=== PATIENT | male | born 1950 | race Caucasian/White ===

== ENCOUNTER → 2016-08-15 | Outpatient (CLI) | payer OTHER ==
[2016-08-15 18:58] LABS: INFLUENZA A PCR Neg for Influ A (NEG)
[2016-08-15 20:28] LABS: INFLUENZA B PCR POS for Influ B (NEG)
== END | disposition home or self-care (01) ==
LOC: C.LABPBG 12:03
PROVIDERS: ATTEND Internal Medicine
DX: J06.9 Acute upper respiratory infection, unspecified (principal)

== ENCOUNTER → 2016-09-07 | Outpatient (CLI) | payer OTHER ==
--- NOTE | 2016-09-13 08:41 | CODING QUERY MEDICAL NECESSITY ---
SUPPORTING DIAGNOSIS NEEDED A supporting diagnosis is required for the test/procedure performed on this patient in order for us to be reimbursed by the patient's insurance. Please provide a supporting diagnosis for the following test/procedure listed below next to the test name along with your signature. *If there is no additional diagnosis for this patient that would support the following test/procedure please document that below next to the test/procedure. Test(s)/Procedure(s) that require a supporting diagnosis: * PSA DIAGNOSIS: * DOS: 09/07/16 Provider Signature: Date: Thank you Naomie Fontenot [employer] Information Management Once completed, please kindly fax back to [phone] For questions please call [phone]
== END | disposition home or self-care (01) ==
LOC: C.LABPBG 08:02
PROVIDERS: ATTEND Urology
DX: N43.3 Hydrocele, unspecified (principal); C61 Malignant neoplasm of prostate

== ENCOUNTER → 2017-03-13 | Outpatient (CLI) | payer OTHER ==
[2017-03-13 12:01] LABS: BASO % 0.5 %; BASO ABS # 0.04 K/uL (0-0.2); COMPLETE YES; EOS % 3.6 %; HEMATOCRIT 46.8 % (42-52); IG% 0.7 %; LYMPH % 23.2 %; LYMPH ABS # 1.73 K/uL (1.2-3.4); MEAN CELL VOLUME 90.2 fL (80-100); MEAN CORPUSCULAR HGB CONC 34.4 g/dl (32-36); MEAN PLATELET VOLUME 10.7 fL (7.4-10.4); MONO % 7.9 %; NEUT % 64.1 %; PLATELET COUNT 180 K/uL (130-400); RED BLOOD COUNT 5.19 M/uL (4.7-6.1); WHITE BLOOD COUNT 7.45 K/uL (4.8-10.8)
[2017-03-13 12:25] LABS: ALT/SGPT 28 U/L (12-78); AST/SGOT 18 U/L (15-37); BLOOD UREA NITROGEN 17 mg/dl (7-18); BUN/CREATININE RATIO 14.5 (10-20); CARBON DIOXIDE 27 mmol/L (21-32); CHLORIDE 101 mmol/L (98-107); ESTIMATED AVERAGE GLUCOSE 295 mg/dl; GLUCOSE 323 mg/dl (70-99); HA1C FLAG Normal (Normal); POTASSIUM 4.1 mmol/L (3.5-5.1); SODIUM 132 mmol/L (136-145)
[2017-03-13 12:28] LABS: ALB/GLOB RATIO 1.2 (0.9-2); ALKALINE PHOSPHATASE 91 U/L (45-117); CHOLESTEROL 181 mg/dl (0-200); CHOLESTEROL/HDL RATIO 3.6; HDL CHOLESTEROL 50 mg/dl; LDL CHOLESTEROL CALCULATED 100 mg/dl; TRIGLYCERIDES 156 mg/dl (0-150); VERY LOW DENSITY LIPOPROT CALC 31 mg/dl
[2017-03-13 12:36] LABS: BETA-HYDROXYBUTYRATE 3.14 mg/dL (0.2-2.81)
--- NOTE | 2017-03-24 06:43 | CODING QUERY MEDICAL NECESSITY ---
SUPPORTING DIAGNOSIS NEEDED A supporting diagnosis is required for the test/procedure performed on this patient in order for us to be reimbursed by the patient's insurance. Please provide a supporting diagnosis for the following test/procedure listed below next to the test name along with your signature. *If there is no additional diagnosis for this patient that would support the following test/procedure please document that below next to the test/procedure. Test(s)/Procedure(s) that require a supporting diagnosis: * HEMOGLOBIN A1C DIAGNOSIS: * PSA DIAGNOSIS: Provider Signature: Date: Thank you Pearl Feldman [employer] Information Management Once completed, please kindly fax back to [phone] For questions please call [phone]
== END | disposition home or self-care (01) ==
LOC: C.LABPBG 09:19
PROVIDERS: ATTEND Internal Medicine
DX: E03.9 Hypothyroidism, unspecified (principal); T14.8 Other injury of unspecified body region; X58.XXXA Exposure to other specified factors, initial encounter; E11.9 Type 2 diabetes mellitus without complications; C61 Malignant neoplasm of prostate

== ENCOUNTER → 2017-05-31 | Outpatient (CLI) | payer OTHER | END | disposition home or self-care (01) | LOC: C.LABBC 09:45 | PROVIDERS: ATTEND Physician Assistant | DX: C61 Malignant neoplasm of prostate (principal) ==

== ENCOUNTER → 2017-07-07 | Outpatient (CLI) | payer OTHER ==
[2017-07-07 17:49] LABS: ALBUMIN 3.6 gm/dl (3.4-5.0); ALT/SGPT 27 U/L (12-78); AST/SGOT 17 U/L (15-37); BLOOD UREA NITROGEN 21 mg/dl (7-18); CALCIUM 9.4 mg/dl (8.5-10.1); CARBON DIOXIDE 21 mmol/L (21-32); CREATININE 1.25 mg/dl (0.60-1.40); GLUCOSE 174 mg/dl (70-99); POTASSIUM 4.2 mmol/L (3.5-5.1); SODIUM 137 mmol/L (136-145)
[2017-07-07 17:51] LABS: ALKALINE PHOSPHATASE 81 U/L (45-117); TOTAL PROTEIN 7.4 gm/dl (6.4-8.2)
[2017-07-08 07:40] LABS: HEMOGLOBIN A1C 8.2 % (4.5-5.6)
== END | disposition home or self-care (01) ==
LOC: C.LABPBG 11:37
PROVIDERS: ATTEND Internal Medicine
DX: Z00.00 Encounter for general adult medical examination without abnormal findings (principal); E11.9 Type 2 diabetes mellitus without complications

== ENCOUNTER 2025-02-16 13:29 | Inpatient (IN) ==
--- NOTE | 2025-02-16 14:11 | Emergency Department Note ---
Impression & Plan Facial droop, Stroke-like symptoms, History of CVA (cerebrovascular accident), Hypomagnesemia ED Provider Note NAME: ELLIOT HERNANDEZ AGE: 74 SEX: M : 1950 ARRIVES VIA: Walk-In INFORMANT: [Patient] ED PROVIDER(S): [Jose Alberto Ortiz MD] Patient first seen by me at 1344 CHIEF COMPLAINT: Stroke symptoms HISTORY OF PRESENT ILLNESS: The patient is a 74-year-old male who is currently on aspirin and Plavix. The patient was discharged from [facility] around 3 weeks ago after the diagnosis of CVA. He had presented with left facial numbness. CT imaging did show some moderate to severe stenosis of the right internal carotid artery, MRI showed a left medullary infarct. The patient did return back to the same hospital a few days later because of some issues with temperature sensation with his right arm. A repeat MRI was done that showed no change. He was discharged. Patient has had intermittent left facial numbness and drooping since discharge although, things seemed recently to be quite improved. This morning, around 10 AM, 3 hours and 45 minutes ago, the patient noticed increased numbness in the left face and his face was much more drooped. The patient has had tearing of his left eye intermittently over the last few weeks and he has a hard time closing the left eye. The tearing in the eye today is worse. The patient has not noticed any weakness in his arms or legs. Of note, the patient also complains of some stiffness to his left neck and left face. This has been present since this morning, even before the left facial numbness and drooping worsened. PMHx/PSHx/Social Hx: See Below PHYSICAL EXAM: GENERAL: Patient is in no acute distress. HEENT: No acute trauma, normocephalic atraumatic, mucous membranes moist, no nasal congestion. NECK: No stridor, no adenopathy, no meningismus, trachea is midline. LUNGS: Clear to auscultation bilaterally, no wheeze, no rhonchi, breath sounds equal. HEART: Without murmurs gallops or rubs, regular rate and rhythm. ABDOMEN: Soft, nontender, no peritonitis. EXTREMITIES: No cyanosis, full range of motion of all the joints without pain or difficulty. NEUROLOGIC: Oriented x 3. The patient has an obvious left facial droop. No speech slur. There is tearing of his left eye. He has a loss of the left frontalis wrinkles and often, his left eye does not blink. There is no extremity drift or cerebellar dysfunction. SKIN: No jaundice, no diaphoresis. DIFFERENTIAL DIAGNOSIS: Stroke, Mata's palsy, intracranial bleeding, electrolyte imbalance, Lyme disease, among others. EMERGENCY DEPARTMENT PROCEDURES: MEDICAL DECISION MAKING: There is no leukocytosis or concerning anemia. There is a normal platelet count. No bandemia. No coagulopathy. Sodium is somewhat low but not in need of emergent correction. No renal failure. Magnesium is low at 1.5. No concerning liver enzyme elevation. ECG shows a sinus rhythm, no ischemia. Cardiac enzyme testing x 1 is not consistent with acute cardiac injury. Anaplasmosis and Babesia smears are negative. Lyme disease testing is negative. Brain CT shows no acute bleed or mass effect. CTA of the head and neck was performed, patient does have narrowing of his carotids. No clot seen. On exam, the patient had no focal extremity deficits, no drift. He had a left facial droop that seemed to involve his left frontalis musculature and left eyeblink. The patient was aggressively managed, a stroke alert was called. I did speak with the stroke neurologist from [place]. The patient is not a TNK candidate as, he just was diagnosed with a CVA 3 weeks ago. Admission and repeat stroke workup was felt necessary. Currently, the patient is doing well. His left facial droop is persisting. By my exam, his droop seems very consistent with Mata's palsy rather than acute CVA. The patient is being hospitalized for a complete stroke workup. MRI needs to be performed. I did speak with case management, the on-call hospitalist was consulted. Of note, given the low magnesium value, 2 g of IV magnesium was ordered as replacement. Prior/Outside records/notes reviewed: Discharge summary report from 01/27/2025 describing his presentation, hospital course and plan at discharge. ECG per my interpretation: Indication was stroke. The ECG shows a sinus rhythm with some sinus arrhythmia. The rate is 68. There is an incomplete right bundle branch block. There is no ST elevation, no PVCs. The QTc is 406. Continuous Cardiac Monitoring per my interpretation: An order was placed for continuous cardiac monitoring. The monitor shows a rate of 66 with normal sinus rhythm. Imaging/x-ray results per my interpretation: Chronic Medical/Social conditions affecting care: Advanced age, recent diagnosis of CVA. Care/Management discussed with: [facility] stroke neurology-Dr. Jones. Case management and the on-call hospitalist. Level of care consideration(s): After review of the information above and other included data: --I believe the patient requires escalation of care to admission Critical Care Note: I have personally spent 46 minutes of critical care time in the direct management of this patient. This includes bedside care, interpretation of diagnostic studies, and testing, discussion with consultants, patient, and family members, and other required patient management activities. This 46 minutes is in excess of all separately billable procedures. DISPOSITION: Admission Past Med/Surg History Problem List (Updated 02/16/25 @ 17:40 by Jose Alberto Ortiz MD) Hypomagnesemia (Acute) History of CVA (cerebrovascular accident) (Acute) Stroke-like symptoms (Acute) Facial droop (Acute) Encounter for pre-operative examination Abnormal chest CT Tobacco use disorder ILD (interstitial lung disease) Alveolar emphysema of lung Right upper lobe pulmonary nodule Lumbar facet joint syndrome GERD (gastroesophageal reflux disease) Spinal stenosis of lumbar region with neurogenic claudication Calcification of abdominal aorta Coronary artery calcification seen on CT scan History of cigarette smoking Diabetic polyneuropathy (Chronic) Dyslipidemia (high LDL; low HDL) (Chronic) Diabetic nephropathy associated with type 2 diabetes mellitus (Chronic) History of malignant neoplasm of prostate HTN (hypertension) (Chronic) Hypothyroidism (Chronic) Lumbar spinal stenosis (Chronic) 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 History of COVID-19 hx Apr 2022, no hx hospitalization. Altered taste ever since. 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 "very top of right lung" - reason for upcoming procedure on 02/12/25. per pt report: no known lung problems or breathing problems as of current only the lung nodules, pt reports had breathing tests & were normal. History of stroke (01/26/25) evaluated at [facility] no TNK given per records Seen in ED 01/28/25 after discharge from hospital 01/27/25 with stroke like symptoms but no new lesions noted Residuals: trouble swallowing, right side can't feel hot or cold and smile crooked some but improving every day. Current PT for. Upcoming neurology 02/20/25. Stenosis of right carotid artery Per neck/head CTA 01/28/25= 50% left ICA stenosis, 70% right ICA stenosis, 60% stenosis of left vertebral artery, possible chronic occlusion of distal right vertebral artery Coronary artery calcification seen on CT scan Advanced coronary artery atherosclerosis noted on 02/04/25 chest CTA GERD (gastroesophageal reflux disease) History of vertigo Hyperlipidemia HTN (hypertension) Neuropathy Diabetes Spinal stenosis History of diverticulitis s/p colon resection History of prostate cancer s/p prostatectomy Arthritis Tommy's thyroiditis Surgical History History of colonoscopy S/P colon resection (05/2022) further sigmoid resection, takedown of colostomy Status post Yinka procedure (12/2021) ex-lap, sigmoid resection, yinka pouch, sigmoid colostomy History of esophagogastroduodenoscopy (EGD) (08/2022) w/ dilatation; noted multiple antral erosions History of surgery (12/2022) excision sebaceous cyst post neck History of incisional hernia repair (10/2022) Dr Lalo Christian H/O prostatectomy prostate surgery included hernia repair as well per pt, ? details. Status post hernia repair multiple Status post cholecystectomy Status post appendectomy Family History Mother Colorectal cancer Cardiac disorder Diabetes Hypertension Breast cancer Father Diabetes Hypertension Grandfather (Maternal) Myocardial infarction Denies family history of Ovarian cancer Prostate cancer Social History Smoking Status: Never smoker Tobacco Type: Cigarettes Age Started Using Tobacco: 18; Age Quit Using Tobacco: 74; packs per day: 0.5; Cigarettes Per Day: 1 pack per week; Second Hand Exposure: No; Do You Dip or Chew Tobacco: No; Hx Alcohol Use: Yes (hx couple beers a day prior to stroke 01/26/25, none since.) Alcohol type: beer Alcohol type Comment: 3 beers Alcohol Intake Frequency: 4 or More x per/Week Hx Substance Use: Yes (hx 37 yrs ago smoked marijuana once in awhile) Preferred Language: Chinese Communication Ability: Effective Visual Impairment: No Limitations Hearing Ability: Normal 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 Beliefs That Will Affect Care: Latter-Day L[employer]-Day Beliefs: Adventism marital status: Current Living Situation: Spouse Current Living Situation Comment: and the cat current occupational status: employed 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 Feels Safe at Home: Yes Childhood Exposure to Second-Hand Smoke: No Diet: regular Diet Comment: regular caffeine: Yes (Tea x 3 bottles per day.) during the past year weight has: remained stable Dental Care, Regularly: Yes Physical Activity Frequency: Daily Physical Activity Frequency Comment: working Seatbelt Use: never Sunscreen Use: No Assistive Devices: Denture - Upper, Glasses and Other Allergies Allergies Allergy/AdvReac Type Severity Reaction Status Date / Time No Known Allergies Allergy Verified 02/06/25 08:31 Home Meds Home Medications Medication Instructions Recorded Confirmed aspirin 81 mg tablet,delayed 81 mg PO DAILY 01/29/25 02/16/25 release (Adult Low Dose Aspirin) atorvastatin 20 mg tablet 20 mg PO QPM 01/29/25 02/16/25 clopidogrel 75 mg tablet (Plavix) 75 mg PO QAM 01/29/25 02/16/25 cyanocobalamin (vitamin B-12) 1,000 mcg PO DAILY 01/29/25 02/16/25 1,000 mcg tablet meclizine 25 mg tablet 25 mg PO TID PRN hx vertigo 01/29/25 02/16/25 ondansetron 4 mg disintegrating 4 mg PO Q8H PRN Nausea 01/29/25 02/16/25 tablet amlodipine 5 mg tablet 5 mg PO QPM 02/06/25 02/16/25 levothyroxine 112 mcg tablet 112 mcg PO QAM 02/06/25 02/16/25 pantoprazole 40 mg tablet,delayed 40 mg PO QAM 02/06/25 02/16/25 release (Protonix) Previous Rx's Medication Instructions Recorded blood sugar diagnostic (Contour #100 ea 01/10/23 Next Test Strips) blood-glucose meter (Blood Glucose #1 ea 01/10/23 Monitoring kit) metoprolol succinate 50 mg 50 mg PO QAM #90 tabs 09/16/24 tablet,extended release 24 hr (Toprol XL) glimepiride 2 mg tablet 4 mg (2 x 2 mg) PO QAM #180 tabs 12/02/24 ramipril 10 mg capsule 20 mg (2 x 10 mg) PO QAM #180 caps 12/31/24 metformin 500 mg tablet,extended 500 mg PO BID #180 tabs 01/13/25 release 24 hr Results & Data (ED) Vital Signs Vital Signs - 24 hr 02/16/25 13:30 02/16/25 13:45 02/16/25 14:16 Temperature 36.4 C L Temperature Source Temporal Artery Scan Pulse Rate 70 68 Pulse Rate [Apical] 66 Pulse Rhythm [Apical] Pulse Strength [Apical] Respiratory Rate 18 16 Respiratory Effort / Characteristics Non-Labored Non-Labored Spontaneous Respiratory Depth Normal Normal Respiratory Pattern Regular Regular Blood Pressure 145/70 H Blood Pressure [Right Arm] 153/77 H Blood Pressure Mean 95 Blood Pressure Mean [Right Arm] 102 Blood Pressure Position [Right Arm] Pulse Oximetry 99 98 Oxygen Delivery Method Room Air Room Air Sepsis Recent Fever Within 48 Hours No Sepsis New/Unexplained Change in Mental Status N/A Sepsis Action Taken by Nursing No Action Required 02/16/25 15:05 02/16/25 16:00 Temperature Temperature Source Pulse Rate Pulse Rate [Apical] 65 64 Pulse Rhythm [Apical] Irregular Regular Pulse Strength [Apical] Normal Respiratory Rate 22 14 Respiratory Effort / Characteristics Non-Labored Spontaneous Non-Labored Spontaneous Respiratory Depth Normal Normal Respiratory Pattern Regular Regular Blood Pressure Blood Pressure [Right Arm] 147/81 H 138/68 Blood Pressure Mean Blood Pressure Mean [Right Arm] 103 91 Blood Pressure Position [Right Arm] Semi-fowlers Pulse Oximetry 99 96 Oxygen Delivery Method Room Air Room Air Sepsis Recent Fever Within 48 Hours Sepsis New/Unexplained Change in Mental Status Sepsis Action Taken by Care Home Medications Current Medication List: was personally reviewed by me Laboratory Data Attestation: I reviewed the patient's lab results. 02/16/25 13:50 02/16/25 13:50 Lab Results 02/16/25 Range/Units 13:50 WBC 7.48 (4.8-10.8) K/ul RBC 4.75 (4.70-6.10) M/uL Hgb 15.0 (14.0-18.0) g/dl Hct 42.8 (42.0-52.0) % MCV 90.1 (80.0-100.0) fL MCH 31.6 (25.0-34.0) pg MCHC 35.0 (32.0-36.0) g/dL RDW Std Deviation 42.7 (36.4-46.3) fL RDW Coeff of Lidia 13.0 (11.5-14.5) % Plt Count 178 (130-400) K/uL MPV 10.4 (9.4-12.4) fL Immature Gran % (Auto) 1.2 % Neut % (Auto) 64.7 % Lymph % (Auto) 19.1 % Dade % (Auto) 7.5 % Eos % (Auto) 6.7 % Baso % (Auto) 0.8 % Neut # (Auto) 4.84 (1.40-6.50) K/uL Lymph # (Auto) 1.43 (1.20-3.40) K/uL Dade # (Auto) 0.56 (0.11-0.59) K/uL Eos # (Auto) 0.50 (0.00-0.50) K/uL Baso # (Auto) 0.06 (0.00-0.20) K/uL Immature Gran # (Auto) 0.09 (0.01-0.20) K/uL PT 10.3 (9.0-12.0) Seconds INR 0.9 (0.9-1.1) APTT 28 (21-31) Seconds PTT Ratio 1.0 Sodium 132 L (136-145) mmol/L Potassium 4.5 (3.5-5.1) mmol/L Chloride 99 (98-107) mmol/L Carbon Dioxide 26 (21-32) mmol/L Anion Gap 7 (3-11) BUN 22 (6-23) mg/dl Creatinine 1.26 (0.6-1.4) mg/dl Est Cr Clr Drug Dosing 49.9 ml/min eGFR 59.11 BUN/Creatinine Ratio 17.5 (10-20) Glucose 273 H (70-99(Fasting)) mg/dl Calcium 9.8 (8.6-10.3) mg/dl Magnesium 1.5 L (1.7-2.4) mg/dl Total Bilirubin 0.9 (0.2-1.0) mg/dl AST 20 (13-39) U/L ALT 29 (7-52) U/L Alkaline Phosphatase 118 H (34-104) U/L Troponin I High Sens 7.9 (0-20) pg/ml Total Protein 6.7 (6.0-8.3) gm/dl Albumin 4.0 (3.4-5.0) gm/dl Globulin 2.7 (2.5-4.0) gm/dl Albumin/Globulin Ratio 1.5 (0.9-2) Anaplasma Smear See Comment Babesia Smear See Comment Lyme Disease Screen Negative (Negative) Administered Medications Discontinued Medications Magnesium Sulfate/Dextrose (Magnesium Sulfate / D5w) 1 gm in 100 mls @ 100 mls/hr IV Q1H JOSE ALFREDO Stop: 02/16/25 16:55 Last Infusion: 02/16/25 17:23 Dose: 0 mls/hr Documented By: Admin: 02/16/25 16:36 Dose: 100 mls/hr Documented By: Infusion: 02/16/25 16:36 Dose: Infused Documented By: Admin: 02/16/25 15:08 Dose: 100 mls/hr Documented By: ELMER Ioversol (Optiray 320 125ml) 112 ml IV ONCE ONE Stop: 02/16/25 14:41 Last Admin: 02/16/25 14:40 Dose: 112 ml Documented By: POLINA Imaging Data Radiologist's Impression: Head CT 02/16/25 14:15 Exam: CT head/brain without contrast. Reason for exam: Recent stroke, rule out bleed. Previous studies: None available. FINDINGS: No intracranial mass effect, hemorrhage or edema is seen at this time. There is a mild diffuse atrophy and symmetric deep white matter lucencies suggesting chronic microvascular ischemic changes. Some benign ventricular calcifications are present. No extra-axial blood or fluid collection is seen. No acute or destructive process of the bony calvarium is seen. The visualized mastoids and sinuses remain clear. Extensive atherosclerotic vascular calcifications are present. IMPRESSION: 1. Negative for acute intracranial process. No mass or hemorrhage. 2. Diffuse atrophy and lucency in the deep white matter most suggestive of chronic microvascular ischemic angiopathy. 3. Extensive atherosclerotic vascular calcifications in the carotid systems. Electronically signed by Shay Heredia 02-16-2025 3:55 PM Head CTA 02/16/25 14:18 Exam: CT angiogram head with contrast. Reason for exam: Recent stroke, rule out bleed. Previous studies: Unenhanced head CT 02/16/2025. FINDINGS: Following injection of intravenous contrast material the arterial intracranial structures are visualized. Intact flow seen in the distal internal carotid arteries bilaterally. Extensive hard and soft plaque is seen in the distal intracranial effusions and the carotid siphons bilaterally producing a maximum of approximately 50% stenosis at these levels. Intact seen in the arteries about the three affiliated of Delgado including the anterior and middle cerebral arteries bilaterally. Intact flow is seen in the distal vertebral arteries bilaterally to form the basilar. The left vertebral is dominant in size and scattered atherosclerotic plaque disease is seen in the distal vertebrals bilaterally as well as near the origin of the basilar artery. No evidence of active hemorrhage. Aneurysm is visualized at this time. IMPRESSION: 1. Negative for hemorrhage. 2. Extensive atherosclerotic vascular calcifications with a maximum of approximately 50% stenosis in the distal internal carotid arteries bilaterally. Otherwise no significant stenoses about the three affiliated of [place]gado or Electronically signed by Shay Heredia 02-16-2025 4:00 PM Neck CTA 02/16/25 14:18 Exam: CT angiogram neck with contrast. Reason for exam: Recent stroke, rule out bleed or CVA. Previous studies for comparison: None FINDINGS: Following intravenous contrast there is good opacification of the arterial structures. Aortic arch, normal vessel and is seen with scattered plaquing but no high-grade stenosis or occlusion. The right carotid bifurcation shows extensive hard and soft plaque with a maximum stenosis of 70% of the right internal carotid artery near its origin. 80% stenosis is seen in the proximal right external carotid artery. Mid and distal right internal carotid artery show no high-grade stenosis. The left carotid bifurcation shows a large irregular mixed hard and soft plaque with a maximum 50% stenosis in the proximal left internal carotid artery. Maximum 40% stenosis is seen of the left external carotid artery. Intact flow is seen bilaterally. The left being significantly dominant in size. An mild scattered plaquing but no complete occlusion of the basilar artery. IMPRESSION: 1. Extensive mixed hard and soft plaque at both carotid bifurcations. 2. Maximum 70% stenosis proximal right internal carotid artery. 3. Maximum 50% stenosis proximal left internal carotid artery. 4. Intact vertebral flow bilaterally, with the left being markedly dominant in size to the right. Electronically signed by Shay Heredia 02-16-2025 4:10 PM Discharge Plan Visit Data Chief Complaint: Stroke/CVA Symptoms Stated Complaint: CONCERN OF STROKE, L SIDE OF FACE FEELING WEIRD ED Provider: Jose Alberto Ortiz Discharge Problem: Facial droop, Stroke-like symptoms, History of CVA (cerebrovascular accident), Hypomagnesemia Patient Disposition: Admitted As Inpatient Condition: Fair Forms Stand Alone Forms: [employer] Prescriptions Prescriptions: No Action metoprolol succinate [Toprol XL] 50 mg tablet extended release 24 hr 50 mg PO QAM Qty: 90 3RF glimepiride 2 mg tablet 4 mg PO QAM Qty: 180 3RF ramipril 10 mg capsule 20 mg PO QAM Qty: 180 3RF metformin 500 mg tablet extended release 24 hr 500 mg PO BID Qty: 180 3RF Hold Instructions: Held for IVP dye, resume Wednesday [place]/31 [place] [place] blood-glucose meter [Blood Glucose Monitoring] Kit See Rx Instructions .ROUTE .MEDSUPPLY Qty: 1 0RF Rx Instructions: As directed daily ([facility] [place] Contour Next Test Strips Strip See Rx Instructions .Route Qty: 100 5RF Rx Instructions: once per day aspirin [Adult Low Dose Aspirin] 81 mg tablet,delayed release (DR/EC) 81 mg PO DAILY Patient Comments: 02/16- otc unable to verify clopidogrel [Plavix] 75 mg tablet 75 mg PO QAM atorvastatin 20 mg tablet 20 mg PO QPM Rx Instructions: New current takin 2 10 mg- want 1 20 mg next fill cyanocobalamin (vitamin B-12) 1,000 mcg tablet 1,000 mcg PO DAILY Patient Comments: 02/16- otc unable to verify meclizine 25 mg tablet 25 mg PO TID PRN (Reason: hx vertigo) Patient Comments: New for vertigo PRN ondansetron 4 mg tablet,disintegrating 4 mg PO Q8H PRN (Reason: Nausea) amlodipine 5 mg tablet 5 mg PO QPM Rx Instructions: in evening pantoprazole [Protonix] 40 mg tablet,delayed release (DR/EC) 40 mg PO QAM levothyroxine 112 mcg tablet 112 mcg PO QAM Rx Instructions: TAKE 1 TABLET BY MOUTH DAILY Referrals Referrals: Poppy Huerta DO [Primary Care Provider] -
[2025-02-16 14:34] LABS: Hematocrit (blood only) 42.8 % (42.0-52.0); Hemoglobin 15.0 g/dl (14.0-18.0); Immature Granulocytes # (auto) 0.09 K/uL (0.01-0.20); Immature Granulocytes % (auto) 1.2 %; Mean Corpuscular Hemoglobin 31.6 pg (25.0-34.0); Mean Corpuscular Volume 90.1 fL (80.0-100.0); Platelet Count 178 K/uL (130-400); RDW Standard Deviation 42.7 fL (36.4-46.3); Red Blood Count 4.75 M/uL (4.70-6.10); White Blood Count 7.48 K/ul (4.8-10.8)
[2025-02-16] MEDS: OPTIRAY 320 125ml IV ONE (14:40)
[2025-02-16 14:51] LABS: Alanine Aminotransferase 29.0 U/L (7-52); Albumin Globulin Ratio 1.5 (0.9-2); Alkaline Phosphatase 118.0 U/L (34-104); Anion Gap 7.0 (3-11); Bilirubin,Total 0.9 mg/dl (0.2-1.0); Blood Urea Nitrogen 22.0 mg/dl (6-23); Calcium 9.8 mg/dl (8.6-10.3); Carbon Dioxide 26.0 mmol/L (21-32); Chloride 99.0 mmol/L (98-107); Creatinine Clr Calc Pharmacy 49.9 ml/min; Globulin 2.7 gm/dl (2.5-4.0); Glucose 273.0 mg/dl (70-99(Fasting)); Magnesium 1.5 mg/dl (1.7-2.4); Potassium 4.5 mmol/L (3.5-5.1); Sodium 132.0 mmol/L (136-145); Total Protein 6.7 gm/dl (6.0-8.3)
[2025-02-16 15:05] LABS: INR 0.9 (0.9-1.1); Partial Thromboplastin Time 28 Seconds (21-31); Prothrombin Time 10.3 Seconds (9.0-12.0)
[2025-02-16] MEDS: MAGNESIUM SULFATE / D5W 1 GM/100 ML BAG IV SCH (15:08)
--- NOTE | 2025-02-16 15:36 | History & Physical Report ---
Date of Service February 16, 2025 Assessment & Plan (1) Facial droop: (2) History of CVA (cerebrovascular accident): (3) Tobacco use disorder: (4) ILD (interstitial lung disease): (5) Right upper lobe pulmonary nodule: (6) GERD (gastroesophageal reflux disease): (7) Spinal stenosis of lumbar region with neurogenic claudication: (8) HTN (hypertension): (9) Hypothyroidism: (10) History of prostate cancer: Plan Pleasant 74yo male with recent history of left medullary stroke - hospitalized at [facility] from 01/26 to 01/27 - along with T2DM, tobacco use, HTN, hypothyroidism, lumbar spinal stenosis, h/o prostate cancer, hyperlipidemia, and daily alcohol use until recently. During his stay at [facility] he underwent CTAs head/neck; this showed significant right-sided ICA stenosis. Echo completed on 01/27 showed EF 60%, grade 1 diastolic dysfunction, no PFO, and normal valve function. He was discharged on aspirin and plavix. He returned to the [facility] ER on 01/28 with complaints of ongoing left facial symptoms and temperature disturbance of his right arm. He underwent repeat brain MRI at that time and it was unchanged from the prior brain MRI done just 2 days earlier. #left medullary stroke - December 2024 - with worsening L facial droop - -patient had been recovering well from his December CVA; left facial symptoms were improving day to day -however, starting this am, he noted worsening L facial droop, left eye tearing, and left nare rhinorrhea - this prompted him to come to the ER -no change in his right arm temperature disturbance, and no new symptoms/signs of either arm/leg -differential - stroke recrudescence vs extension of his original left medullary stroke vs stroke in new location vs non-CVA pathology (Mata's Palsy, etc) vs other -current symptoms/signs of the L face and right arm are typical for medullary stroke; thus, this may be recrudescence -although there was some concern for possible Mata's Palsy, I do believe he still has L forehead movements arguing against such -repeat CTAs head/neck today show b/l ICA stenosis, worse on right, but doubt contributing to recent stroke -just had echo in late December - will defer repeat -check a repeat MRI brain w/ and w/o contrast -dysphagia screen as he reports dysphagia since the time of his December CVA -PT, OT, speech therapy evals -cont asa 81mg daily + plavix 75mg daily -cont statin -strongly consider [facility] consult in light of recurrent symptoms in the setting of his recent CVA -lipids were checked in October 2024 - defer on repeat -check a1c in am #hypomagnesemia - -replaced with IV mag -repeat level am #hypothyroidism - -TSH in October 2024 was wnl -cont synthroid #HTN - -hold amlodipine, meto succ, and HELEN to allow permissive HTN in the setting of possible new stroke #T2DM - -hold metformin; hold glimepiride -check a1c am -BSGs ac/hs -novolog SSI #tobacco use disorder - -patient quit about 3 weeks ago following his late December stroke #daily use of etoh - -also stopped etoh intake following the December stroke #RUL lung nodule/mass - -has seen Dr Hager for this earlier in January -plan is for bronch with biopsy in near-future to rule out lung ca #GERD - -cont PPI #COPD/ILD - -recent chest CT with increased reticular findings - this may be due to ILD -o2 sats stable at this time #DVT proph - -pending MRI brain will add SC heparin or lovenox pt's updated throughout the admissions process History of Present Illness Chief Complaint: left facial droop, left eye tearing, left nasal drainage Primary Care Provider: DO Anirudh Murdock 74yo male with recent history of left medullary stroke - hospitalized at [facility] from 01/26 to 01/27 - along with T2DM, tobacco use, HTN, hypothyroidism, lumbar spinal stenosis, h/o prostate cancer, hyperlipidemia, and daily alcohol use until recently. During his stay at [facility] he underwent CTAs head/neck; this showed significant right-sided ICA stenosis. Echo completed on 01/27 showed EF 60%, grade 1 diastolic dysfunction, no PFO, and normal valve function. He was discharged on aspirin and plavix. He returned to the [facility] ER on 01/28 with complaints of ongoing left facial symptoms and temperature disturbance of his right arm. He underwent repeat brain MRI at that time and it was unchanged from the prior brain MRI done just 2 days earlier. He reports that since late December his left facial symptoms have gradually been improving. His right arm temperature disturbance remains, however (his right arm feels cold persistently). However, about 10am this morning, he noted worsening facial droop, excessive tearing from the left eye, and the left nostril was draining. No new motor or sensory symptoms of the right arm or right leg. He had a posterior neck headache today, on the left side - but no frontal headache. During my admission assessment the headache had resolved. Since the stroke in late December he has had dysphagia but has not required modif ication of his diet texture or fluids. Per the ER attending physician telestroke was contacted at [place] but lytic therapy was not recommended; usual stroke work-up was advised. Of note - during his stroke work-up in December at [facility] he was noted to have a RUL lung mass. He has seen Dr Kobi Hager with [facility] earlier this month for such and bronchoscopy for biopsy was advised due to concern for lung ca. Allergies Allergy/AdvReac Type Severity Reaction Status Date / Time No Known Allergies Allergy Verified 02/06/25 08:31 Home Medications Medication Instructions Recorded Confirmed Type blood sugar diagnostic (Contour #100 ea 01/10/23 01/31/25 Rx Next Test Strips) blood-glucose meter (Blood Glucose #1 ea 01/10/23 01/31/25 Rx Monitoring kit) metoprolol succinate 50 mg 50 mg PO QAM #90 tabs 09/16/24 02/16/25 Rx tablet,extended release 24 hr (Toprol XL) glimepiride 2 mg tablet 4 mg (2 x 2 mg) PO QAM #180 tabs 12/02/24 02/16/25 Rx ramipril 10 mg capsule 20 mg (2 x 10 mg) PO QAM #180 caps 12/31/24 02/16/25 Rx metformin 500 mg tablet,extended 500 mg PO BID #180 tabs 01/13/25 02/16/25 Rx release 24 hr aspirin 81 mg tablet,delayed 81 mg PO DAILY 01/29/25 02/16/25 History release (Adult Low Dose Aspirin) atorvastatin 20 mg tablet 20 mg PO QPM 01/29/25 02/16/25 History clopidogrel 75 mg tablet (Plavix) 75 mg PO QAM 01/29/25 02/16/25 History cyanocobalamin (vitamin B-12) 1,000 mcg PO DAILY 01/29/25 02/16/25 History 1,000 mcg tablet meclizine 25 mg tablet 25 mg PO TID PRN hx vertigo 01/29/25 02/16/25 History ondansetron 4 mg disintegrating 4 mg PO Q8H PRN Nausea 01/29/25 02/16/25 History tablet amlodipine 5 mg tablet 5 mg PO QPM 02/06/25 02/16/25 History levothyroxine 112 mcg tablet 112 mcg PO QAM 02/06/25 02/16/25 History pantoprazole 40 mg tablet,delayed 40 mg PO QAM 02/06/25 02/16/25 History release (Protonix) Past Med/Surg History Problem List (Updated 02/16/25 @ 20:57 by Fabián Coy MD) Acute cerebrovascular accident (CVA) of medulla oblongata Hypomagnesemia (Acute) History of CVA (cerebrovascular accident) (Acute) 12/2024 - left medullary CVA (hospitalized [facility]) Stroke-like symptoms (Acute) Facial droop (Acute) Encounter for pre-operative examination Abnormal chest CT Tobacco use disorder ILD (interstitial lung disease) Alveolar emphysema of lung Right upper lobe pulmonary nodule Lumbar facet joint syndrome GERD (gastroesophageal reflux disease) Spinal stenosis of lumbar region with neurogenic claudication Calcification of abdominal aorta Coronary artery calcification seen on CT scan History of cigarette smoking Diabetic polyneuropathy (Chronic) Dyslipidemia (high LDL; low HDL) (Chronic) Diabetic nephropathy associated with type 2 diabetes mellitus (Chronic) History of malignant neoplasm of prostate HTN (hypertension) (Chronic) Hypothyroidism (Chronic) Lumbar spinal stenosis (Chronic) 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 History of COVID-19 hx Apr 2022, no hx hospitalization. Altered taste ever since. 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 "very top of right lung" - reason for upcoming procedure on 02/12/25. per pt report: no known lung problems or breathing problems as of current only the lung nodules, pt reports had breathing tests & were normal. History of stroke (01/26/25) evaluated at [facility] no TNK given per records Seen in ED 01/28/25 after discharge from hospital 01/27/25 with stroke like symptoms but no new lesions noted Residuals: trouble swallowing, right side can't feel hot or cold and smile crooked some but improving every day. Current PT for. Upcoming neurology 02/20/25. Stenosis of right carotid artery Per neck/head CTA 01/28/25= 50% left ICA stenosis, 70% right ICA stenosis, 60% stenosis of left vertebral artery, possible chronic occlusion of distal right vertebral artery Coronary artery calcification seen on CT scan Advanced coronary artery atherosclerosis noted on 02/04/25 chest CTA GERD (gastroesophageal reflux disease) History of vertigo Hyperlipidemia HTN (hypertension) Neuropathy Diabetes Spinal stenosis History of diverticulitis s/p colon resection History of prostate cancer s/p prostatectomy Arthritis Tommy's thyroiditis Surgical History (Updated 02/16/25 @ 20:53 by Fabián Coy MD) History of colonoscopy S/P colon resection (05/2022) further sigmoid resection, takedown of colostomy Status post Yinka procedure (12/2021) ex-lap, sigmoid resection, yinka pouch, sigmoid colostomy; 2nd to diverticultiis History of esophagogastroduodenoscopy (EGD) (08/2022) w/ dilatation; noted multiple antral erosions History of surgery (12/2022) excision sebaceous cyst post neck History of incisional hernia repair (10/2022) Dr Lalo Christian H/O prostatectomy prostate surgery included hernia repair as well per pt, ? details. Status post hernia repair multiple Status post cholecystectomy Status post appendectomy Family History (Updated 02/16/25 @ 20:54 by Fabián Coy MD) Mother Colorectal cancer Cardiac disorder Diabetes Hypertension Breast cancer Father Diabetes Hypertension Aortic aneurysm Grandfather (Maternal) Myocardial infarction Denies family history of Ovarian cancer Prostate cancer Social History (Updated 02/16/25 @ 20:54 by Fabián Coy MD) Smoking Status: Former smoker Tobacco Type: Cigarettes Age Started Using Tobacco: 18; Age Quit Using Tobacco: 74; packs per day: 0.5; Smoking End Date: December 2024; Second Hand Exposure: No; Do You Dip or Chew Tobacco: No; Hx Alcohol Use: Yes (hx couple beers a day prior to stroke 01/26/25, none since.) Alcohol type: beer Alcohol type Comment: 3 beers Alcohol Intake Frequency: 4 or More x per/Week Hx Substance Use: Yes (hx 37 yrs ago smoked marijuana once in awhile) Preferred Language: Armenian Communication Ability: Effective Visual Impairment: No Limitations Hearing Ability: Normal Visual C Developer Required: No Beliefs That Will Affect Care: Moravian Moravian Beliefs: Restorationism marital status: Current Living Situation: Spouse Current Living Situation Comment: and the cat current occupational status: employed 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 Feels Safe at Home: Yes Childhood Exposure to Second-Hand Smoke: No Diet: regular Diet Comment: regular caffeine: Yes (Tea x 3 bottles per day.) during the past year weight has: remained stable Dental Care, Regularly: Yes Physical Activity Frequency: Daily Physical Activity Frequency Comment: working Seatbelt Use: never Sunscreen Use: No Assistive Devices: Denture - Upper, Glasses and Other Review of Systems Review of Systems: gen - no fevers or chills; normal appetite; physically active, still working part-time eyes - excessive tearing of left eye, no purulence; no diplopia HENT - left nare with rhinorrhea today; some dysphagia since dx of CVA in late December; excess cerumen in ears CV - no chest pain pulm - no dyspnea or cough today GI - no N/V; no abd pain; no diarrhea; no blood in stool - no dysuria musculo - chronic low back pain but no psoriatic arthritis skin - chronic psoriatic patches endo - BSGs controlled at home neuro - no frontal headache but some headache posteriorly on left; temperature sensation in right arm has been altered since his December CVA; left facial symptoms as above Physical Exam Physical Exam: gen - NAD, pleasant, awake, alert eyes - slight ptosis of left upper eyelid; PERRL; no nystagmus; EOMI HENT - TMs obscured by cerumen b/l; mouth - tongue midline, no lesions; left face lower 2/3 facial droop; still can wrinkle the left forehead neck - no JVD, no lymph nodes, no goiter heart - RRR, s1 s2, no murmur lungs - CTA b/l, no rales abd - soft NT ND BS+ ext - b/l foot pulses 2+, no edema skin - psoriatic patches/plaques on legs b/l neuro - strength 5/5 x 4 exts; DTRs 2+ b/l upper & lower exts; finger/nose/finger maneuver w/o ataxia b/l; CN 3-12 intact except left lower 2/3 facial droop and mild ptosis of left upper eyelid; sensation is intact to light touch on all 4 limbs, but he reports temperature dysfunction of the entire right arm psych - a/o x 3 Results & Data Results & Data Vital Signs (Past 12 Hours) Vital Signs Temp Pulse Pulse Resp BP BP Pulse Ox 02/16/25 15:05 65 22 147/81 H 99 02/16/25 14:16 66 16 153/77 H 98 02/16/25 13:45 68 02/16/25 13:30 36.4 C L 70 18 145/70 H 99 O2 Del Method 02/16/25 15:05 Room Air 02/16/25 14:16 Room Air 02/16/25 13:45 02/16/25 13:30 Room Air Laboratory Results Laboratory Results - last 24 hr 02/16/25 02/16/25 02/16/25 13:50 14:20 20:09 WBC 7.48 RBC 4.75 Hgb 15.0 Hct 42.8 MCV 90.1 MCH 31.6 MCHC 35.0 RDW Std Deviation 42.7 RDW Coeff of Lidia 13.0 Plt Count 178 MPV 10.4 Immature Gran % (Auto) 1.2 Neut % (Auto) 64.7 Lymph % (Auto) 19.1 Avery % (Auto) 7.5 Eos % (Auto) 6.7 Baso % (Auto) 0.8 Neut # (Auto) 4.84 Lymph # (Auto) 1.43 Avery # (Auto) 0.56 Eos # (Auto) 0.50 Baso # (Auto) 0.06 Immature Gran # (Auto) 0.09 PT 10.3 INR 0.9 APTT 28 PTT Ratio 1.0 Sodium 132 L Potassium 4.5 Chloride 99 Carbon Dioxide 26 Anion Gap 7 BUN 22 Creatinine 1.26 Est Cr Clr Drug Dosing 49.9 eGFR 59.11 BUN/Creatinine Ratio 17.5 Glucose 273 H POC Glucose 110 H Calcium 9.8 Magnesium 1.5 L Total Bilirubin 0.9 AST 20 ALT 29 Alkaline Phosphatase 118 H Troponin I High Sens 7.9 Total Protein 6.7 Albumin 4.0 Globulin 2.7 Albumin/Globulin Ratio 1.5 Anaplasma Smear See Comment A. phagocytophilum DNA Pending Babesia Smear See Comment Babesia microti DNA PCR Pending Lyme Disease Screen Negative Diagnostic Findings Head CT 02/16/25 14:15 Exam: CT head/brain without contrast. Reason for exam: Recent stroke, rule out bleed. Previous studies: None available. FINDINGS: No intracranial mass effect, hemorrhage or edema is seen at this time. There is a mild diffuse atrophy and symmetric deep white matter lucencies suggesting chronic microvascular ischemic changes. Some benign ventricular calcifications are present. No extra-axial blood or fluid collection is seen. No acute or destructive process of the bony calvarium is seen. The visualized mastoids and sinuses remain clear. Extensive atherosclerotic vascular calcifications are present. IMPRESSION: 1. Negative for acute intracranial process. No mass or hemorrhage. 2. Diffuse atrophy and lucency in the deep white matter most suggestive of chronic microvascular ischemic angiopathy. 3. Extensive atherosclerotic vascular calcifications in the carotid systems. Electronically signed by Shay Heredia 02-16-2025 3:55 PM Head CTA 02/16/25 14:18 Exam: CT angiogram head with contrast. Reason for exam: Recent stroke, rule out bleed. Previous studies: Unenhanced head CT 02/16/2025. FINDINGS: Following injection of intravenous contrast material the arterial intracranial structures are visualized. Intact flow seen in the distal internal carotid arteries bilaterally. Extensive hard and soft plaque is seen in the distal intracranial effusions and the carotid siphons bilaterally producing a maximum of approximately 50% stenosis at these levels. Intact seen in the arteries about the [place] including the anterior and middle cerebral arteries bilaterally. Intact flow is seen in the distal vertebral arteries bilaterally to form the basilar. The left vertebral is dominant in size and scattered atherosclerotic plaque disease is seen in the distal vertebrals bilaterally as well as near the origin of the basilar artery. No evidence of active hemorrhage. Aneurysm is visualized at this time. IMPRESSION: 1. Negative for hemorrhage. 2. Extensive atherosclerotic vascular calcifications with a maximum of approximately 50% stenosis in the distal internal carotid arteries bilaterally. Otherwise no significant stenoses about the [place] or Electronically signed by Shay Heredia 02-16-2025 4:00 PM Neck CTA 02/16/25 14:18 Exam: CT angiogram neck with contrast. Reason for exam: Recent stroke, rule out bleed or CVA. Previous studies for comparison: None FINDINGS: Following intravenous contrast there is good opacification of the arterial structures. Aortic arch, normal vessel and is seen with scattered plaquing but no high-grade stenosis or occlusion. The right carotid bifurcation shows extensive hard and soft plaque with a maximum stenosis of 70% of the right internal carotid artery near its origin. 80% stenosis is seen in the proximal right external carotid artery. Mid and distal right internal carotid artery show no high-grade stenosis. The left carotid bifurcation shows a large irregular mixed hard and soft plaque with a maximum 50% stenosis in the proximal left internal carotid artery. Maximum 40% stenosis is seen of the left external carotid artery. Intact flow is seen bilaterally. The left being significantly dominant in size. An mild scattered plaquing but no complete occlusion of the basilar artery. IMPRESSION: 1. Extensive mixed hard and soft plaque at both carotid bifurcations. 2. Maximum 70% stenosis proximal right internal carotid artery. 3. Maximum 50% stenosis proximal left internal carotid artery. 4. Intact vertebral flow bilaterally, with the left being markedly dominant in size to the right. Electronically signed by Shay Heredia 02-16-2025 4:10 PM Code Status & VTE Plan Code Status full code PG Care Time/CCT Total # of Minutes Spent Total Time Spent with Patient: Total time spent is greater than 50% in coordination of care (as documented) at patient's floor/unit and/or counseling patient: Coding Level of Care Code 81459 INT INP/OBS CARE 3/75MIN Diagnoses Facial droop R29.810 History of CVA (cerebrovascular accident) Z86.73 Tobacco use disorder F17.200 ILD (interstitial lung disease) J84.9 Right upper lobe pulmonary nodule R91.1 GERD (gastroesophageal reflux disease) K21.9 Spinal stenosis of lumbar region with neurogenic claudication M48.062 Essential hypertension I10 Hypertension type: essential hypertension Hypothyroidism E03.9 History of prostate cancer Z85.46 (8) HTN (hypertension) Hypertension type: essential hypertension Qualified Code(s): I10 - Essential (primary) hypertension
--- NOTE | 2025-02-16 15:56 | CT Scan Report ---
Exam: CT head/brain without contrast. Reason for exam: Recent stroke, rule out bleed. Previous studies: None available. FINDINGS: No intracranial mass effect, hemorrhage or edema is seen at this time. There is a mild diffuse atrophy and symmetric deep white matter lucencies suggesting chronic microvascular ischemic changes. Some benign ventricular calcifications are present. No extra-axial blood or fluid collection is seen. No acute or destructive process of the bony calvarium is seen. The visualized mastoids and sinuses remain clear. Extensive atherosclerotic vascular calcifications are present. IMPRESSION: 1. Negative for acute intracranial process. No mass or hemorrhage. 2. Diffuse atrophy and lucency in the deep white matter most suggestive of chronic microvascular ischemic angiopathy. 3. Extensive atherosclerotic vascular calcifications in the carotid systems. Electronically signed by Shay Heredia 02-16-2025 3:55 PM
--- NOTE | 2025-02-16 16:01 | CT Scan Report ---
Exam: CT angiogram head with contrast. Reason for exam: Recent stroke, rule out bleed. Previous studies: Unenhanced head CT 02/16/2025. FINDINGS: Following injection of intravenous contrast material the arterial intracranial structures are visualized. Intact flow seen in the distal internal carotid arteries bilaterally. Extensive hard and soft plaque is seen in the distal intracranial effusions and the carotid siphons bilaterally producing a maximum of approximately 50% stenosis at these levels. Intact seen in the arteries about the [place] including the anterior and middle cerebral arteries bilaterally. Intact flow is seen in the distal vertebral arteries bilaterally to form the basilar. The left vertebral is dominant in size and scattered atherosclerotic plaque disease is seen in the distal vertebrals bilaterally as well as near the origin of the basilar artery. No evidence of active hemorrhage. Aneurysm is visualized at this time. IMPRESSION: 1. Negative for hemorrhage. 2. Extensive atherosclerotic vascular calcifications with a maximum of approximately 50% stenosis in the distal internal carotid arteries bilaterally. Otherwise no significant stenoses about the [place] or Electronically signed by Shay Heredia 02-16-2025 4:00 PM
--- NOTE | 2025-02-16 16:10 | CT Scan Report ---
Exam: CT angiogram neck with contrast. Reason for exam: Recent stroke, rule out bleed or CVA. Previous studies for comparison: None FINDINGS: Following intravenous contrast there is good opacification of the arterial structures. Aortic arch, normal vessel and is seen with scattered plaquing but no high-grade stenosis or occlusion. The right carotid bifurcation shows extensive hard and soft plaque with a maximum stenosis of 70% of the right internal carotid artery near its origin. 80% stenosis is seen in the proximal right external carotid artery. Mid and distal right internal carotid artery show no high-grade stenosis. The left carotid bifurcation shows a large irregular mixed hard and soft plaque with a maximum 50% stenosis in the proximal left internal carotid artery. Maximum 40% stenosis is seen of the left external carotid artery. Intact flow is seen bilaterally. The left being significantly dominant in size. An mild scattered plaquing but no complete occlusion of the basilar artery. IMPRESSION: 1. Extensive mixed hard and soft plaque at both carotid bifurcations. 2. Maximum 70% stenosis proximal right internal carotid artery. 3. Maximum 50% stenosis proximal left internal carotid artery. 4. Intact vertebral flow bilaterally, with the left being markedly dominant in size to the right. Electronically signed by Shay Heredia 02-16-2025 4:10 PM
[2025-02-16] MEDS: GADOBUTROL 65ML VIAL IV ONE (17:37)
[2025-02-16] MEDS ORDERED: PHARMACIST DISCHARGE MED REC CONSULT PRN (18:58)
[2025-02-16] MEDS ORDERED: MECLIZINE HCL 25 MG TAB PO PRN (18:58)
[2025-02-16] MEDS ORDERED: ONDANSETRON INJ 2 MG/ML 2 ML VIAL IV PRN (18:58)
[2025-02-16] MEDS ORDERED: ACETAMINOPHEN 325 MG TAB PO PRN (18:58)
--- NOTE | 2025-02-16 19:04 | Magnetic Resonance Report ---
HISTORY: Increasing left face numbness and left facial droop. History of left medullary infarct 3 weeks ago at [facility]. TECHNIQUE: MRI of the brain with and without contrast. COMPARISON: Head CT dated 02/16/2025. FINDINGS: The cerebellar tonsils do not extend below the foramen magnum. The sella is not expanded. Minimal restricted diffusion in the left aspect of the medulla. There is associated T2 hyperintensity at this location. No other areas of restricted diffusion.Mild volume loss and chronic microvascular ischemic changes. No areas of susceptibility artifact to suggest acute infarct. Mild enhancement within the left aspect of the medulla on series 9 image 7. No other areas of abnormal intraparenchymal enhancement are identified.The area of enhancement in the medulla measures 0.8 x 0.4 cm on series 10 image 60. Small remote lacunar type infarcts involving the right thalamus and the left palomino radiata. Ventricular caliber is appropriate for the degree of volume loss. Fourth ventricle is midline. The basal cisterns are patent. The major intracranial flow voids are maintained. The globes and orbits are unremarkable. Paranasal sinuses and mastoid air cells are well aerated. IMPRESSION: * Signal abnormality within the left aspect of the medulla measuring 0.8 x 0.4 cm. Subtle restricted diffusion with associated T2 hyperintensity and enhancement. This could represent subacute infarct with associated enhancement or a small enhancing lesion. Short interval follow-up brain MRI with contrast is recommended in 1 to 2 months to evaluate for stability. * Mild volume loss and chronic microvascular ischemic changes. Small areas of remote lacunar infarct as detailed above. Electronically signed by Brett Blank 02-16-2025 7:03 PM
[2025-02-16] MEDS: ATORVASTATIN 20 MG TAB PO SCH (20:11)
[2025-02-16] MEDS: INSULIN ASPART PER UNIT CHARGE SC SCH (20:38)
[2025-02-16] MEDS: ASPIRIN 81 MG ECTAB PO SCH (22:03)
[2025-02-16] MEDS: ARTIFICIAL TEARS OP OINT 3.5 GM TUBE OPL SCH (22:03)
[2025-02-17] MEDS: LEVOTHYROXINE SODIUM 112 MCG TABLET PO SCH (06:26)
[2025-02-17 07:16] LABS: Anion Gap 6.0 (3-11); Blood Urea Nitrogen 16.0 mg/dl (6-23); Calcium 9.3 mg/dl (8.6-10.3); Carbon Dioxide 28.0 mmol/L (21-32); Chloride 103.0 mmol/L (98-107); Creatinine Clr Calc Pharmacy 55.6 ml/min; Glucose 138.0 mg/dl (70-99(Fasting)); Magnesium 1.8 mg/dl (1.7-2.4); Potassium 4.6 mmol/L (3.5-5.1); Sodium 137.0 mmol/L (136-145)
[2025-02-17] MEDS: CYANOCOBALAMIN (B-12) 500 MCG TABLET PO SCH (07:53)
[2025-02-17] MEDS: CLOPIDOGREL BISULFATE 75 MG TAB PO SCH (07:53)
[2025-02-17 08:12] LABS: Hemoglobin A1C 7.5 % (4.5-5.6)
[2025-02-17] MEDS: METOPROLOL SUCC 50MG EXT REL TAB PO SCH (08:16)
--- NOTE | 2025-02-17 09:13 | Neurology Consultation ---
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 left face appears improved per pt. pt wanting to go home today. mri brain noted subacute change that is same small left medial medullary ischemic stroke. no weakness or other symptoms. chart reviewed. Admission HPI:The patient is a 74-year-old male who is currently on aspirin and Plavix. The patient was discharged from [facility] around 3 weeks ago after the diagnosis of CVA. He had presented with left facial numbness. CT imaging did show some moderate to severe stenosis of the right internal carotid artery, MRI showed a left medullary infarct. The patient did return back to the same hospital a few days later because of some issues with temperature sensation with his right arm. A repeat MRI was done that showed no change. He was discharged. Patient has had intermittent left facial numbness and drooping since discharge although, things seemed recently to be quite improved. This morning, around 10 AM, 3 hours and 45 minutes ago, the patient noticed increased numbness in the left face and his face was much more drooped. The patient has had tearing of his left eye intermittently over the last few w eeks and he has a hard time closing the left eye. The tearing in the eye today is worse. The patient has not noticed any weakness in his arms or legs. Of note, the patient also complains of some stiffness to his left neck and left face. This has been present since this morning, even before the left facial numbness and drooping worsened. Allergies Allergy/AdvReac Type Severity Reaction Status Date / Time No Known Allergies Allergy Verified 02/06/25 08:31 Home Medications Medication Instructions Recorded Confirmed Type blood sugar diagnostic (Contour #100 ea 01/10/23 01/31/25 Rx Next Test Strips) blood-glucose meter (Blood Glucose #1 ea 01/10/23 01/31/25 Rx Monitoring kit) metoprolol succinate 50 mg 50 mg PO QAM #90 tabs 09/16/24 02/16/25 Rx tablet,extended release 24 hr (Toprol XL) glimepiride 2 mg tablet 4 mg (2 x 2 mg) PO QAM #180 tabs 12/02/24 02/16/25 Rx ramipril 10 mg capsule 20 mg (2 x 10 mg) PO QAM #180 caps 12/31/24 02/16/25 Rx metformin 500 mg tablet,extended 500 mg PO BID #180 tabs 01/13/25 02/16/25 Rx release 24 hr aspirin 81 mg tablet,delayed 81 mg PO DAILY 01/29/25 02/16/25 History release (Adult Low Dose Aspirin) atorvastatin 20 mg tablet 20 mg PO QPM 01/29/25 02/16/25 History clopidogrel 75 mg tablet (Plavix) 75 mg PO QAM 01/29/25 02/16/25 History cyanocobalamin (vitamin B-12) 1,000 mcg PO DAILY 01/29/25 02/16/25 History 1,000 mcg tablet meclizine 25 mg tablet 25 mg PO TID PRN hx vertigo 01/29/25 02/16/25 History ondansetron 4 mg disintegrating 4 mg PO Q8H PRN Nausea 01/29/25 02/16/25 History tablet amlodipine 5 mg tablet 5 mg PO QPM 02/06/25 02/16/25 History levothyroxine 112 mcg tablet 112 mcg PO QAM 02/06/25 02/16/25 History pantoprazole 40 mg tablet,delayed 40 mg PO QAM 02/06/25 02/16/25 History release (Protonix) Patient History Medical History (Updated 02/16/25 @ 20:57 by Fabián Coy MD) History of anesthesia reaction remote hx as child had ether for hernia repair, severe n/v. History of COVID-19 hx Apr 2022, no hx hospitalization. Altered taste ever since. 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 "very top of right lung" - reason for upcoming procedure on 02/12/25. per pt report: no known lung problems or breathing problems as of current only the lung nodules, pt reports had breathing tests & were normal. History of stroke (01/26/25) evaluated at [facility] no TNK given per records Seen in ED 01/28/25 after discharge from hospital 01/27/25 with stroke like symptoms but no new lesions noted Residuals: trouble swallowing, right side can't feel hot or cold and smile crooked some but improving every day. Current PT for. Upcoming neurology 02/20/25. Stenosis of right carotid artery Per neck/head CTA 01/28/25= 50% left ICA stenosis, 70% right ICA stenosis, 60% stenosis of left vertebral artery, possible chronic occlusion of distal right vertebral artery Coronary artery calcification seen on CT scan Advanced coronary artery atherosclerosis noted on 02/04/25 chest CTA GERD (gastroesophageal reflux disease) History of vertigo Hyperlipidemia HTN (hypertension) Neuropathy Diabetes Spinal stenosis History of diverticulitis s/p colon resection History of prostate cancer s/p prostatectomy Arthritis Tommy's thyroiditis Surgical History (Updated 02/16/25 @ 20:53 by Fabián Coy MD) History of colonoscopy S/P colon resection (05/2022) further sigmoid resection, takedown of colostomy Status post Yinka procedure (12/2021) ex-lap, sigmoid resection, yinka pouch, sigmoid colostomy; 2nd to diverticultiis History of esophagogastroduodenoscopy (EGD) (08/2022) w/ dilatation; noted multiple antral erosions History of surgery (12/2022) excision sebaceous cyst post neck History of incisional hernia repair (10/2022) Dr Lalo Christian H/O prostatectomy prostate surgery included hernia repair as well per pt, ? details. Status post hernia repair multiple Status post cholecystectomy Status post appendectomy Family History (Updated 02/16/25 @ 20:54 by Fabián Coy MD) Mother Colorectal cancer Cardiac disorder Diabetes Hypertension Breast cancer Father Diabetes Hypertension Aortic aneurysm Grandfather (Maternal) Myocardial infarction Denies family history of Ovarian cancer Prostate cancer Social History (Updated 02/16/25 @ 20:54 by Fabián Coy MD) Smoking Status: Former smoker Tobacco Type: Cigarettes Age Started Using Tobacco: 18; Age Quit Using Tobacco: 74; packs per day: 0.5; Smoking End Date: December 2024; Second Hand Exposure: No; Do You Dip or Chew Tobacco: No; Tobacco Cessation Education Requested by Patient: No Hx Alcohol Use: Yes (hx couple beers a day prior to stroke 01/26/25, none since.) Alcohol type: beer Alcohol type Comment: 3 beers Alcohol Intake Frequency: 4 or More x per/Week Hx Substance Use: Yes (hx 37 yrs ago smoked marijuana once in awhile) Preferred Language: Cymro Communication Ability: Effective Visual Impairment: No Limitations Hearing Ability: Normal Physical Optics Teacher Required: No Beliefs That Will Affect Care: Yarsanism Yarsanism Beliefs: Adventism marital status: Current Living Situation: Spouse Current Living Situation Comment: and the cat current occupational status: employed 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 Other Information That Helps Us Care for You: No Feels Safe at Home: Yes Safety Concerns: Feels Safe At This Time Childhood Exposure to Second-Hand Smoke: No Diet: regular Diet Comment: regular caffeine: Yes (Tea x 3 bottles per day.) during the past year weight has: remained stable Dental Care, Regularly: Yes Physical Activity Frequency: Daily Physical Activity Frequency Comment: working Seatbelt Use: never Sunscreen Use: No Assistive Devices: Denture - Upper, Glasses and Other Review of Systems Review of Systems: All systems reviewed & are unremarkable except as noted in Subjective Constitutional: as per Subjective / HPI Eyes: as per Subjective / HPI Ear, Nose, Mouth, Throat: as per Subjective / HPI Respiratory: as per Subjective / HPI Cardiovascular: as per Subjective / HPI Gastrointestinal: as per Subjective / HPI Musculoskeletal: as per Subjective / HPI Integumentary: as per Subjective / HPI Neurologic: as per Subjective / HPI Psychiatric: as per Subjective / HPI Endocrine: as per Subjective / HPI Hematologic / Lymphatic: as per Subjective / HPI Allergy / Immunological: as per Subjective / HPI Exam (Neuro) Physical Exam: HEENT: normocephalic Neuro: Mental: AOx4, fluent speech, normal comprehension, no apraxia, no L/R confusion, no neglect CN: PERRL, Full EOM, left face droop including mild weakness forehead. midline T/U/P, 5/5 SCM/traps. Motor: No abnormal movements, normal tone and bulk, 5/5 t/o bilaterally Sens: very subtle rt arm numbness. Coord: intact DTR: 1+ sym b/l Gait: intact grossly Impression: 74 yo male with about 3 weeks ago had left medullary ischemic stroke and presenting with ?left face weakness that is worse and rt arm numbness. 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 Pt's posterior vertebral artery is open and with good flow. Left medullary lesion should not cause his face weakness as there is no facial nerve involvement and not part of the Dejerine's syndrome. his b/l ICA stenosis is chronic in nature and not likely the cause for this stroke as his stroke is posterior circulation. Pt clinically doing well. Recommendations: antiplatelet therapy: continue for 90 days for this pt. * DAPT (dual antiplatelet therapy): start for pts with ABCD2 score 4 or highe r. Initial loading dose with ASA 325mg and Plavix 300mg (if pt has not been started), then ASA 81mg daily and Plavix 75mg daily. Continue DAPT for 21 days if found small vessel disease only or continue for 90 days if found to have intracranial large artery atherosclerosis. After that, can continue single antiplatelet therapy (either ASA or Plavix). - start tx for Mata's palsy (prednisone rosemarie). Permissive Hypertension not needed as his lesion is subacute in nature. Long-term SBP goal less than 130. Long-term HgA1c goal less than 7. long-term LDL goal less than 70. Telemetry monitoring. Consider half-way cardiac monitoring, i.e. MCOT (mobile cardiac outpatient telemetry) or ICM (insertable manager cardiac, e.g. LINQ), if never had half-way cardiac monitoring done previously. And if found to have atrial flutter or fibrillation, should consider anticoagulation therapy if no contraindication. I do not have much to add from neurology stand point at this point. he also brandon lewis has appt in neurology clinic this week. will sign off. call again if new question. Chart reviewed I have spent more than 50% educating patient about potential diagnosis and tom rological evaluation and coordinating care with patient's treatment team. Total time spent (including chart review and coordination of care): 60 min (this includes chart review). Results & Data Vital Signs (Past 12 Hours) Vital Signs Temp Pulse Pulse Pulse Resp BP Pulse Ox 02/17/25 07:28 36.7 C 65 16 171/78 H 97 02/17/25 05:44 66 02/17/25 03:49 36.5 C 81 20 161/80 H 97 02/17/25 00:27 36.6 C 71 20 152/71 H 98 02/16/25 21:44 71 O2 Del Method 02/17/25 07:28 Room Air 02/17/25 05:44 02/17/25 03:49 Room Air 02/17/25 00:27 Room Air 02/16/25 21:44 PG Care Time/CCT Total # of Minutes Spent Total Time Spent with Patient: Total time spent is greater than 50% in coordination of care (as documented) at patient's floor/unit and/or counseling patient: Coding Level of Care Code 54767 IN/OBS CONSULT LVL 4,60M Diagnoses 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
[2025-02-17 12:15] VITALS: TEMP 97.5
[2025-02-17 16:14] VITALS: BP 172/76; RESP 20; O2SAT 68
[2025-02-17] MEDS ORDERED: STROKE PATIENT DISCHARGE STA (16:26)
[2025-02-17 16:38] VITALS: PULSE 81
--- NOTE | 2025-02-17 16:44 | Discharge Summary ---
Discharge Summary Date of Service February 17, 2025 Principal Dx & Hospital Course #1 = Principal Diagnosis (1) Facial droop: (2) History of CVA (cerebrovascular accident): (3) Tobacco use disorder: (4) ILD (interstitial lung disease): (5) Right upper lobe pulmonary nodule: (6) GERD (gastroesophageal reflux disease): (7) Spinal stenosis of lumbar region with neurogenic claudication: (8) HTN (hypertension): (9) Hypothyroidism: (10) History of prostate cancer: Plan Pleasant 74yo male with recent history of left medullary stroke - hospitalized at [facility] from 01/26 to 01/27 - along with T2DM, tobacco use, HTN, hypothyroidism, lumbar spinal stenosis, h/o prostate cancer, hyperlipidemia, and daily alcohol use until recently. During his stay at [facility] he underwent CTAs head/neck; this showed significant right-sided ICA stenosis. Echo completed on 01/27 showed EF 60%, grade 1 diastolic dysfunction, no PFO, and normal valve function. He was discharged on aspirin and plavix. He returned to the [facility] ER on 01/28 with complaints of ongoing left facial symptoms and temperature disturbance of his right arm. He underwent repeat brain MRI at that time and it was unchanged from the prior brain MRI done just 2 days earlier. #left medullary stroke - December 2024 - with worsening L facial droop - -patient had been recovering well from his December CVA; left facial symptoms were improving day to day -however, starting this am, he noted worsening L facial droop, left eye tearing, and left nare rhinorrhea - this prompted him to come to the ER -no change in his right arm temperature disturbance, and no new symptoms/signs of either arm/leg -differential - stroke recrudescence vs extension of his original left medullary stroke vs stroke in new location vs non-CVA pathology (Mata's Palsy, etc) vs other -current symptoms/signs of the L face and right arm are typical for medullary stroke; thus, this may be recrudescence -although there was some concern for possible Mata's Palsy, I do believe he still has L forehead movements arguing against such -repeat CTAs head/neck today show b/l ICA stenosis, worse on right, but doubt contributing to recent stroke -just had echo in late December - will defer repeat -check a repeat MRI brain w/ and w/o contrast -dysphagia screen as he reports dysphagia since the time of his December CVA -PT, OT, speech therapy evals -cont asa 81mg daily + plavix 75mg daily -cont statin -strongly consider [facility] Neurology consult in light of recurrent symptoms in the setting of his recent CVA -lipids were checked in October 2024 - defer on repeat -check a1c in am #hypomagnesemia - -replaced with IV mag -repeat level am #hypothyroidism - -TSH in October 2024 was wnl -cont synthroid #HTN - -hold amlodipine, meto succ, and HELEN to allow permissive HTN in the setting of possible new stroke #T2DM - -hold metformin; hold glimepiride -check a1c am -BSGs ac/hs -novolog SSI #tobacco use disorder - -patient quit about 3 weeks ago following his late December stroke #daily use of etoh - -also stopped etoh intake following the December stroke #RUL lung nodule/mass - -has seen Dr Hager for this earlier in January -plan is for bronch with biopsy in near-future to rule out lung ca #GERD - -cont PPI #COPD/ILD - -recent chest CT with increased reticular findings - this may be due to ILD -o2 sats stable at this time #DVT proph - -pending MRI brain will add SC heparin or lovenox pt's updated throughout the admissions process Admission HPI Per Admitting Provider Pleasant 74yo male with recent history of left medullary stroke - hospitalized at [facility] from 01/26 to 01/27 - along with T2DM, tobacco use, HTN, hypothyroidism, lumbar spinal stenosis, h/o prostate cancer, hyperlipidemia, and daily alcohol use until recently. During his stay at [facility] he underwent CTAs head/neck; this showed significant right-sided ICA stenosis. Echo completed on 01/27 showed EF 60%, grade 1 diastolic dysfunction, no PFO, and normal valve function. He was discharged on aspirin and plavix. He returned to the [facility] ER on 01/28 with complaints of ongoing left facial symptoms and temperature disturbance of his right arm. He underwent repeat brain MRI at that time and it was unchanged from the prior brain MRI done just 2 days earlier. He reports that since late December his left facial symptoms have gradually been improving. His right arm temperature disturbance remains, however (his right arm feels cold persistently). However, about 10am this morning, he noted worsening facial droop, excessive tearing from the left eye, and the left nostril was draining. No new motor or sensory symptoms of the right arm or right leg. He had a posterior neck headache today, on the left side - but no frontal headache. During my admission assessment the headache had resolved. Since the stroke in late December he has had dysphagia but has not required modification of his diet texture or fluids. Per the ER attending physician telestroke was contacted at [place] but lytic therapy was not recommended; usual stroke work-up was advised. Of note - during his stroke work-up in December at [facility] he was noted to have a RUL lung mass. He has seen Dr Kobi Hager with [facility] earlier this month for such and bronchoscopy for biopsy was advised due to concern for lung ca. Discharge Exam gen - NAD, pleasant, awake, alert eyes - slight ptosis of left upper eyelid; PERRL; no nystagmus; EOMI HENT - TMs obscured by cerumen b/l; mouth - tongue midline, no lesions; left face lower 2/3 facial droop; still can wrinkle the left forehead neck - no JVD, no lymph nodes, no goiter heart - RRR, s1 s2, no murmur lungs - CTA b/l, no rales abd - soft NT ND BS+ ext - b/l foot pulses 2+, no edema skin - psoriatic patches/plaques on legs b/l neuro - strength 5/5 x 4 exts; DTRs 2+ b/l upper & lower exts; finger/nose/finger maneuver w/o ataxia b/l; CN 3-12 intact except left lower 2/3 facial droop and mild ptosis of left upper eyelid; sensation is intact to light touch on all 4 limbs, but he reports temperature dysfunction of the entire right arm psych - a/o x 3 Discharge Plan Discharge Items Patient Disposition: Home - Self-Care Reason For Visit: LEFT FACIAL WEAKNESS Discharge Diagnosis: 1. left facial weakness, excessive left eye tearing, excessive drainage from left nostril, right arm temperature/sensation abnormality - due to left-sided medullary stroke -MRI brain unchanged from MRI brain done in late December; no new areas of stroke 2. 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 old lacunar strokes seen incidentally on MRI brain (old, silent strokes) 4. high blood pressure 5. diabetes 6. mildly low magnesium - improved 7. prior tobacco use 8. right lung nodule 9. high cholesterol Activity: As commented below Activity Comment: no strenuous activities for the next 7-10 days Exercise/Sports: Wait until after follow-up appointment Driving/Machine Use: Would not drive until seen by neurology later this week Non-emergency contact: Primary Care Provider and Neurologist Call non-emergency contact if: you have any medication questions and your symptoms worsen Follow-up/Referrals: Poppy Huerta DO [Primary Care Provider] - 02/25/25 9:20 am (1-2 weeks) Rema Self PA-C [Physician [employer] Furnace Tender] - 02/20/25 10:00 am (neurology clinic ) Diet: Carb Consistent or DM2 and Heart Healthy Ambulatory Orders: Basic Metabolic Panel (Routine) Timeframe: [id number] Location: Determined by Patient Ordered By: Fabián Ames Attending Provider Instructions: Mr Iyer, You were hospitalized due to recurrent stroke symptoms. Your left face felt more droopy, you had tearing from the left eye, your left nostril was very runny, etc. Fortunately MRI brain does not show any new stroke. We saw the stroke in the left medulla that was found in late December in [place]. By hospital day #2 your symptoms were improved. CT scans of the major blood vessels of the head & neck showed the following - -70% stenosis of the right internal carotid artery -50% stenosis of the left internal carotid artery The carotid artery disease was NOT the cause of your stroke, however. This will simply need to be followed with annual scans. You were seen by neurology. 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 The other possibility is that the original stroke was the cause of all of your symptoms. Either way your medicines will not change except for a higher dose of lipitor (atorvastatin). Recommendations - 1. continue your baby aspirin 81mg every day along with clopidogrel (plavix) 75mg every day as previous -take the aspirin with clopidogrel together for 90 days -after 90 days stop the aspirin and just take clopidogrel moving forward 2. we are increasing your atorvastatin cholesterol medicine from 20mg to 40mg/day; new prescription sent in for you 3. take magnesium supplement (magnesium oxide) 400mg once daily 4. HOLD your metformin tonight and tomorrow morning 5. have a blood draw tomorrow morning at the [place] office; you don't have to fast for this; once I have the results I will call you; if the results are normal you will be able to resume your metformin then 6. check your blood pressure twice daily; keep a log; show these numbers to neurology and your family doctor 7. congratulations on quitting smoking! 8. limiting your alcohol intake is also very healthy; good job on this as well 9. 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 please complete a 30-day heart monitor at your home; we will set this up for you; typically the device gets mailed to your house. This is to look for abnormal heart rhythms (atrial fibrillation, etc) that can cause a stroke Follow-up - see separate section Who to Call and When: Medical Emergencies: Call 911 immediately if you experience any of the following warning signs and symptoms of Stroke: * Sudden numbness or weakness of the face, arm or leg, especially on one side of the body * Sudden confusion, trouble speaking or understanding * Sudden trouble seeing in one or both eyes * Sudden trouble walking, dizziness, loss of balance or coordination * Sudden severe headache with no cause Do not delay calling 911 if you experience any warning signs or symptoms of a stroke. Delay in seeking medical attention may affect what treatments can be given to you. It was our pleasure to care for you! -Fabián Coy, [facility] Medicine Addtl Diagnostics Tech Provider Instructions: Risk Factors for Stroke: You can reduce your chances of stroke by working with your medical provider to adopt a healthy lifestyle. Some specific ways to lower your chance of stroke are: * If you are a smoker, now is the time to stop smoking cigarettes * If you are diabetic, improve the control of your blood sugars * Avoid excessive amounts of alcohol * Control high blood pressure * Lose weight if you are overweight * Be sure to lead an active lifestyle * Eat a healthy diet low in salt, cholesterol and fat You should know about other risk factors for stroke that you are unable to control. These include: * Age 55 years or older * Male gender * Certain racial groups: , or / * Family History of Stroke, Mini stroke or Heart Attack * Sickle Cell Disease . Pending Studies at Discharge: No Stand-Alone Forms: My [facility] userADgents, Smoking Cessation Medications and DC Order Prescriptions: New magnesium oxide 400 mg magnesium tablet 400 mg PO DAILY Qty: 30 2RF Continued metoprolol succinate [Toprol XL] 50 mg tablet extended release 24 hr 50 mg PO QAM Qty: 90 3RF glimepiride 2 mg tablet 4 mg PO QAM Qty: 180 3RF ramipril 10 mg capsule 20 mg PO QAM Qty: 180 3RF (DME) blood-glucose meter [Blood Glucose Monitoring] Kit See Rx Instructions .ROUTE .MEDSUPPLY Qty: 1 0RF Rx Instructions: As directed daily (DME) Contour Next Test Strips Strip See Rx Instructions .Route Qty: 100 5RF Rx Instructions: once per day aspirin [Adult Low Dose Aspirin] 81 mg tablet,delayed release (DR/EC) 81 mg PO DAILY Patient Comments: 02/16- otc unable to verify clopidogrel [Plavix] 75 mg tablet 75 mg PO QAM cyanocobalamin (vitamin B-12) 1,000 mcg tablet 1,000 mcg PO DAILY Patient Comments: 02/16- otc unable to verify meclizine 25 mg tablet 25 mg PO TID PRN (Reason: hx vertigo) Patient Comments: New for vertigo PRN ondansetron 4 mg tablet,disintegrating 4 mg PO Q8H PRN (Reason: Nausea) amlodipine 5 mg tablet 5 mg PO QPM Rx Instructions: in evening pantoprazole [Protonix] 40 mg tablet,delayed release (DR/EC) 40 mg PO QAM levothyroxine 112 mcg tablet 112 mcg PO QAM Rx Instructions: TAKE 1 TABLET BY MOUTH DAILY Changed atorvastatin 40 mg tablet 40 mg PO DAILY Qty: 30 2RF Rx Instructions: please note larger dose Held metformin 500 mg tablet extended release 24 hr 500 mg PO BID Qty: 180 3RF Hold Instructions: hold until your blood work is checked on 02/18 Discharge Orders: Discharge Order (Routine); Ordered 02/17/25 Ordered By: Fabián Sanchez/Other Patient Handouts: Managing Type 2 Diabetes, Stroke: Self-Care, Risk Factors for Stroke Admission Data Admit Date/Time: 02/16/25 17:09 Attending Provider: Fabián Coyit Provider: Fabián Coy Primary Care Provider: Poppy Huerta Other Providers: Santana De La Cruz; Fabián Coy; Brett Pereira Hospital Stay Data Consultations 02/16/25 15:21 ED Decision to Admit Stat 02/16/25 15:33 ED Decision to Admit Stat 02/17/25 07:53 Consult Neurology Routine Diagnostic Imagining Performed 02/16/25 14:15 CT head/brain wo con Stat 02/16/25 14:18 CT angio head w con Stat CT angio neck with con Stat 02/16/25 17:13 MR brain wo/w con Urgent Pending Results Patient Have Any Pending Studies at Discharge: No Discharge Instructions Given to Patient (Per Discharging Provider) Mr Iyer, Baldev were hospitalized due to recurrent stroke symptoms. Your left face felt more droopy, you had tearing from the left eye, your left nostril was very runny, etc. Fortunately MRI brain does not show any new stroke. We saw the stroke in the left medulla that was found in late December in [place]. By hospital day #2 your symptoms were improved. CT scans of the major blood vessels of the head & neck showed the following - -70% stenosis of the right internal carotid artery -50% stenosis of the left internal carotid artery The carotid artery disease was NOT the cause of your stroke, however. This will simply need to be followed with annual scans. You were seen by neurology. 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 The other possibility is that the original stroke was the cause of all of your symptoms. Either way your medicines will not change except for a higher dose of lipitor (atorvastatin). Recommendations - 1. continue your baby aspirin 81mg every day along with clopidogrel (plavix) 75mg every day as previous -take the aspirin with clopidogrel together for 90 days -after 90 days stop the aspirin and just take clopidogrel moving forward 2. we are increasing your atorvastatin cholesterol medicine from 20mg to 40mg/day; new prescription sent in for you 3. take magnesium supplement (magnesium oxide) 400mg once daily 4. HOLD your metformin tonight and tomorrow morning 5. have a blood draw tomorrow morning at the [place] office; you don't have to fast for this; once I have the results I will call you; if the results are normal you will be able to resume your metformin then 6. check your blood pressure twice daily; keep a log; show these numbers to neurology and your family doctor 7. congratulations on quitting smoking! 8. limiting your alcohol intake is also very healthy; good job on this as well 9. 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 please complete a 30-day heart monitor at your home; we will set this up for you; typically the device gets mailed to your house. This is to look for abnormal heart rhythms (atrial fibrillation, etc) that can cause a stroke Follow-up - see separate section Who to Call and When: Medical Emergencies: Call 911 immediately if you experience any of the following warning signs and symptoms of Stroke: * Sudden numbness or weakness of the face, arm or leg, especially on one side of the body * Sudden confusion, trouble speaking or understanding * Sudden trouble seeing in one or both eyes * Sudden trouble walking, dizziness, loss of balance or coordination * Sudden severe headache with no cause Do not delay calling 911 if you experience any warning signs or symptoms of a stroke. Delay in seeking medical attention may affect what treatments can be given to you. It was our pleasure to care for you! -Fabián Coy, Hospital Medicine Coding Diagnoses Facial droop R29.810 History of CVA (cerebrovascular accident) Z86.73 Tobacco use disorder F17.200 ILD (interstitial lung disease) J84.9 Right upper lobe pulmonary nodule R91.1 GERD (gastroesophageal reflux disease) K21.9 Spinal stenosis of lumbar region with neurogenic claudication M48.062 Essential hypertension I10 Hypertension type: essential hypertension Hypothyroidism E03.9 History of prostate cancer Z85.46
--- NOTE | 2025-02-19 10:58 | Pharmacy Report ---
Pharmacist Stroke Counseling - Date of Service February 19, 2025 - Scope: Pharmacy has been consulted to provide medication discharge counseling for this patient admitted with ischemic stroke as per the Pharmacist Discharge Counseling for Stroke Patients Protocol. - Medications on Discharge: Home Medications Medication Instructions Recorded Confirmed aspirin 81 mg tablet,delayed 81 mg PO DAILY 01/29/25 02/18/25 release (Adult Low Dose Aspirin) cyanocobalamin (vitamin B-12) 1,000 mcg PO DAILY 01/29/25 02/18/25 1,000 mcg tablet meclizine 25 mg tablet 25 mg PO TID PRN hx vertigo 01/29/25 02/18/25 ondansetron 4 mg disintegrating 4 mg PO Q8H PRN Nausea 01/29/25 02/18/25 tablet levothyroxine 112 mcg tablet 112 mcg PO QAM 02/06/25 02/18/25 pantoprazole 40 mg tablet,delayed 40 mg PO QAM 02/06/25 02/18/25 release (Protonix) New Rx's Medication Instructions Recorded blood sugar diagnostic (Contour #100 ea 01/10/23 Next Test Strips) blood-glucose meter (Blood Glucose #1 ea 01/10/23 Monitoring kit) metoprolol succinate 50 mg 50 mg PO QAM #90 tabs 09/16/24 tablet,extended release 24 hr (Toprol XL) glimepiride 2 mg tablet 4 mg (2 x 2 mg) PO QAM #180 tabs 12/02/24 ramipril 10 mg capsule 20 mg (2 x 10 mg) PO QAM #180 caps 12/31/24 metformin 500 mg tablet,extended 500 mg PO BID #180 tabs 01/13/25 release 24 hr atorvastatin 40 mg tablet 40 mg PO DAILY #30 tabs 02/17/25 magnesium oxide 400 mg PO DAILY #30 tabs 02/17/25 amlodipine 5 mg tablet 5 mg PO QPM #90 tabs 02/18/25 clopidogrel 75 mg tablet (Plavix) 75 mg PO QAM #90 tabs 02/18/25 - Action: The above medications, specifically ones for stroke treatment/prophylaxis, have been reviewed in detail with the patient and/or patient pharmacy services representative(s) prior to discharge. This includes indication, common adverse reactions, drug interactions, and medication administration. Medication counseling has been employed using the teach-back method to ensure understanding. - Outcome: The patient and/or patient pharmacy services representative(s) have demonstrated understanding of the medications. Additional comments: * Patient was able to explain all medication changes (increased atorvastatin to 40 mg daily, magnesium oxide 400 mg daily, continuation of aspirin/clopidogrel for 90 days and then clopidogrel only) * Patient also confirmed that he was given the okay to resume his metformin as well * Appointment w/ neurology scheduled for tomorrow * No obvious barriers to medication compliance identified during interview Thank you for allowing pharmacy to be involved in the care of this patient. Please call [phone] with any additional questions
--- NOTE | 2025-02-19 12:36 | Coding Query ---
CODING QUERY To promote full compliance with coding requirements relating to patient care, provider participation is requested in all cases of solar energy systems designer uncertainty. 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 Brief stay, Neuro consulted. Seeking to clarify if the facial droop was due to a new stroke or sequelae from previous stroke. Please check below the phrase that describes the facial droop. Thanks for your help! JEAN Holcomb [facility] Physician's Response(s): The facial droop is from an acute stroke , Present on admission ___x____ The facial droop is a worsening symptom from prior medulary stroke Other: please document: Principal Diagnosis: "that condition established after study, to be chiefly responsible for occasioning the admission of the patient to the hospital for care." Co-Existing Principal Diagnosis: "when two or more diagnoses equally meet the criteria for principal diagnosis as determined by the circumstances of admission, diagnostic work up, and/or therapy provided, and the Alphabetic Index, Tabular List, or another coding guideline does not provide sequencing direction, any one of the diagnoses may be sequenced first." "When the physician has documented what appears to be a current diagnosis in the body of the record, but has not included the diagnosis in the final diagnostic statement, the physician should be asked whether the diagnosis should be added." (Source Coding [facility] 2 QTR90. p3-4) BENID
--- NOTE | 2025-02-21 13:03 | Electrocardiogram Report ---
Test Reason : Blood Pressure : */* mmHG Vent. Rate : 66 BPM Atrial Rate : 66 BPM P-R Int : 142 ms QRS Dur : 94 ms QT Int : 388 ms P-R-T Axes : 49 -43 32 degrees QTcB Int : 406 ms Sinus rhythm with marked sinus arrhythmia Left axis deviation Lead V2 may be misplaced Otherwise normal ECG No previous ECGs available Confirmed by Yimi Yun ([id number]) on 02/21/2025 1:03:19 PM Referred By: Confirmed By: Yimi Yun
== END 2025-02-17 17:46 | disposition home or self-care (01) | DRG 57 ==
LOC: ED 13:29 → 2N 17:09